=== PATIENT | female | born 1970 | race Caucasian/White ===

== ENCOUNTER 2021-02-18 09:08 | Emergency (ER) | payer BC ==
[~2021-02-18] VITALS: Ht 149.9 cm; Wt 104.3 kg
[2021-02-18 09:17] VITALS: BP_SYST 131
--- NOTE | 2021-02-18 09:24 | NUR ---
AMBULATED TO BED 4
--- NOTE | 2021-02-18 09:25 | NUR ---
Pt AAO and ambulatory reporting open abscess to upper neck X 3 weeks. Pt saw PMD and started on Keflex 4 days ago. Pt reports worsening pain 8/10 and has a history of DM.
--- NOTE | 2021-02-18 09:35 | NUR ---
Dr. Mcneil at bedside to assess.
[2021-02-18] MEDS ORDERED: LIDOCAINE MPF 2% 5mL VIAL INJ ONE (09:45)
[2021-02-18] MEDS ORDERED: LIDOCAINE 2%, 20 ML MDV ONE (09:50)
--- NOTE | 2021-02-18 10:05 | NUR ---
Urine sample sent lab for analysis.
--- NOTE | 2021-02-18 10:22 | NUR ---
Report given to BERNIE Ruiz who will assume care.
--- NOTE | 2021-02-18 10:44 | NUR ---
MD SHARIF AT BEDSIDE DRAINING ABCESS.
[2021-02-18] MEDS ORDERED: BACITRACIN/POLYMYXIN B SULFATE 30 GM TOPICAL OINT. TP SCH (11:00)
--- NOTE | 2021-02-18 11:00 | NUR ---
SITE WAS DRESSED BY THE RN AFTER APPLYING POLYSPORIN. LARGE BANDAIDS APPLIED AND A COUPLE EXTRA GIVEN TO PT.
[2021-02-18] MEDS ORDERED: SULF1TAB48 PO (11:02)
--- NOTE | 2021-02-18 11:15 | NUR ---
Patient given written and verbal discharge instructions and verbalizes understanding. ER MD discussed with patient the results and treatment provided. Patient in stable condition. ID arm band removed. no active bleeding. Rx of BACTRIM given. Patient educated on pain management and to follow up with PMD. Pain Scale 0/10. Opportunity for questions provided and answered. Medication side effect fact sheet provided.
[2021-02-18 11:29] VITALS: BP_SYST 131
[2021-02-18 11:54] LABS: BILIRUBIN,URINE NEGATIVE (NEGATIVE); BLOOD, URINE NEGATIVE (NEGATIVE); CLARITY/URINE CLEAR (CLEAR); COLOR,URINE YELLOW (YELLOW); GLUCOSE,URINE TRACE (NEGATIVE); KETONES,URINE NEGATIVE (NEGATIVE); LEUKOCYTE ESTERASE ,URINE NEGATIVE (NEGATIVE); NITRITE, URINE NEGATIVE (NEGATIVE); PROTEIN URINE NEGATIVE (NEGATIVE); UROBILINOGEN,URINE 0.2 (0.2-1.0)
== END 2021-02-18 11:29 | disposition home or self-care (01) ==
LOC: SED 09:08
DX: L02.11 Cutaneous abscess of neck (principal); E11.65 Type 2 diabetes mellitus with hyperglycemia; Z79.899 Other long term (current) drug therapy
CPT/HCPCS: 10060; 81003; 82962; 99284; J2001 ×2